=== PATIENT | female | born 1945 | race Caucasian/White ===

== ENCOUNTER 2021-04-27 18:24 | Emergency (ER) | payer OTHER, SELFPAY ==
[2021-04-27 18:30] VITALS: BP 215/81; PULSE 56; RESP 14; TEMP 36.7; O2SAT 94
--- NOTE | 2021-04-27 18:30 | RT.EKG_ITS ---
APPROVED REPORT Exam: Resting ECG Reason for Exam: dizzy Patient Location: E HR:50 bpm ECG Measurements Heart Rate 50 AXIS IN 209 P 46 QRSd 106 QRS -9 QT 506 T 30 QTc 461 Conclusion Sinus bradycardia...rate< 60. Sinus. No STEMI. I have reviewed and interpreted ECG and agree with software generated interpretation.
[2021-04-27 19:16] VITALS: RESP 20
[2021-04-27] MEDS: Normal Saline 1,000 ML 1000 ML IV (19:16)
[2021-04-27 19:20] LABS: Abs Immature Grans 0.09 10^3/uL (0.0-0.06); Absolute Basophil Count 0.06 10^3/uL (0.0-0.2); Absolute Eosinophil Count 0.25 10^3/uL (0.0-0.7); Absolute Lymphocyte Count 1.59 10^3/uL (1.2-3.4); Absolute Monocyte Count 0.66 10^3/uL (0.1-0.8); Absolute Neutrophil Count 6.21 10^3/uL (1.2-6.7); Basophils % 0.7; Eosinophils % 2.8; HCT 42.2 % (36.0-46.0); HGB 13.2 g/dL (11.2-15.7); Lymphocytes % 17.9; MCH 31.1 pg (27.0-33.0); MCHC 31.3 % (32.0-36.0); MCV 99.3 fL (80-95); MPV 10.7 fL (8.0-11.0); Monocytes % 7.4; Neutrophils % 70.2; Nucleated RBC 0 %; Platelet Count 269 10^3/uL (130-400); RBC 4.25 10^6/uL (3.93-5.22); RDW 13.2 % (11.7-14.6); RDW-SD 48.2 fL; WBC 8.86 10^3/uL (4.4-10.8)
[2021-04-27 19:32] LABS: ALT 30 U/L (14-59); AST 24 U/L (15-37); Albumin 3.8 g/dL (3.4-5.0); Alkaline Phosphatase 83 U/L (46-116); Anion Gap 7.3 mmol/L (3-11); BUN 16 mg/dL (7-18); Bilirubin, Total 0.4 mg/dL (0.2-1.0); CO2 28.7 mmol/L (21.0-32.0); CREATININE 0.9 mg/dL (0.55-1.02); Calcium 8.7 mg/dL (8.5-10.1); Chloride 107 mmol/L (98-107); Glucose 103 mg/dL (74-106); Potassium 3.6 mmol/L (3.5-5.1); Sodium 143 mmol/L (136-145); Total Protein 7.3 g/dL (6.4-8.2); Troponin I < 0.05 ng/mL (<0.06)
--- NOTE | 2021-04-27 19:45 | W.ED.GENAD ---
Discharge Plan Disposition Patient Disposition: HOME Condition: Stable Discharge Details Clinical Impression: Alcohol intoxication Primary Care Provider: Unknown,Unknown ED Provider: Chintan Staples Home Meds and New Rx's Prescriptions: Continued wkheunbgkl-hkpfhyyagdvhq-zchl 50-325-40 mg tablet RF: 0 atorvastatin 40 mg tablet 40 mg PO HS RF: 0 tizanidine 2 mg tablet 2 mg PO HS RF: 0 lisinopril 20 mg tablet 20 mg PO DAILY RF: 0 propranolol 40 mg tablet 40 mg PO BID RF: 0 hydrocodone-acetaminophen 7.5-325 mg tablet RF: 0 gabapentin 100 mg capsule 100 mg PO BID RF: 0 duloxetine 30 mg capsule,delayed release(DR/EC) 90 mg PO DAILY AM RF: 0 potassium gluconate 600 mg (99 mg) Tablet RF: 0 magnesium 200 mg Tablet 400 mg PO DAILY AM RF: 0 Discharge Instructions Instructions: Alcohol Intoxication (ED) Additional Instructions: Please drink alcohol in moderation. Watch for new or worsening symptoms and return to the ER for any concerns. As we discussed, your thyroid level, TSH is elevated and your free T4 is normal, this typically means you have hypothyroidism. I recommend following up with your primary care provider when you return home to [place] to discuss these levels as you may need to be monitored or placed on medications Discharge Data Discharge Date/Time-TO BE ENTERED AT DEPARTURE: 04/27/21 20:51 Medical Decision Making This is a 76-year-old female presenting via EMS for alcohol intoxication. She was with her and friends today, she does not typically drink alcohol, has had several alcoholic drinks. While driving home she went to a bathroom a rest stop and then was unable to out of the bathroom on her own. Because she and her could not get her out, EMS was called. Upon presentation to the ER she is asymptomatic and reports that she is acting at her baseline mental status. Denies recent illness or trauma. History of hypertension, initial blood pressure reading was 215/81, she is afebrile, O2 sats are 94% on room air. Without any intervention blood pressures began trending down quickly. Given her overall presentation this very well may be secondary to alcohol intoxication but given her age and comorbidities, would like to obtain routine laboratory values, EKG, troponin, and a head CT. Patient adamantly declines a head CT, reports that she is at baseline and reports her decision to refuse head CT. Patient receiving 1 L IV fluid Laboratory values do not reveal any obvious emergent process. TSH is 7.80. Free T4 of 0.93. Alcohol of 118. Discussed thyroid levels with patient and family, they will discuss this with their primary care provider when they return to [place]. Work-up thus far benign, again CT imaging of the head declined. Patient was observed in the ER until clinical sobriety was reached, she reports feeling asymptomatic and is requesting to be discharged. Patient's is comfortable caring for her in her current condition and supports her being discharged. Standard discharge and return precautions provided. Upon discharge blood pressure 173/80. Denies headache, visual changes, chest pain, shortness of breath, etc. This documentation was generated using yavalu dictation system, please disregard any oddities of phrase or misspellings. Lab Data Lab results reviewed: Yes I reviewed the patient's lab results. Labs: Laboratory Tests Range/Units 04/27/21 04/27/21 04/27/21 18:45 18:45 19:45 WBC (4.4-10.8) 10^3/uL 8.86 RBC (3.93-5.22) 10^6/uL 4.25 Hgb (11.2-15.7) g/dL 13.2 Hct (36.0-46.0) % 42.2 MCV (80-95) fL 99.3 H MCH (27.0-33.0) pg 31.1 MCHC (32.0-36.0) % 31.3 L RDW (11.7-14.6) % 13.2 Plt Count (130-400) 10^3/uL 269 MPV (8.0-11.0) fL 10.7 Immature Gran % 1.0 Neutrophils % 70.2 Lymphocytes % 17.9 Monocytes % 7.4 Eosinophils % 2.8 Basophils % 0.7 Nucleated RBC % % 0 Absolute Neutrophils (1.2-6.7) 10^3/uL 6.21 Absolute Lymphocytes (1.2-3.4) 10^3/uL 1.59 Absolute Monocytes (0.1-0.8) 10^3/uL 0.66 Absolute Eosinophils (0.0-0.7) 10^3/uL 0.25 Absolute Basophils (0.0-0.2) 10^3/uL 0.06 Sodium (136-145) mmol/L 143 Potassium (3.5-5.1) mmol/L 3.6 Chloride (98-107) mmol/L 107 Carbon Dioxide (21.0-32.0) mmol/L 28.7 Anion Gap (3-11) mmol/L 7.3 BUN (7-18) mg/dL 16 Creatinine (0.55-1.02) mg/dL 0.9 Estimated GFR/1.73 m2 (mL/min/1.73m2) >= 60.00 Glucose (74-106) mg/dL 103 Calcium (8.5-10.1) mg/dL 8.7 Magnesium (1.8-2.4) mg/dL 2.0 Total Bilirubin (0.2-1.0) mg/dL 0.4 AST (15-37) U/L 24 ALT (14-59) U/L 30 Alkaline Phosphatase (46-116) U/L 83 Troponin I (<0.06) ng/mL < 0.05 Total Protein (6.4-8.2) g/dL 7.3 Albumin (3.4-5.0) g/dL 3.8 TSH (0.36-3.74) uIU/mL 7.80 H Free T4 (0.76-1.46) ng/dL 0.93 Urine Color (Yellow) Yellow Urine Clarity (Clear) Clear Urine pH (5-8) 7.5 Ur Specific [place] (1.005-1.025) 1.020 Urine Protein (Negative) mg/dL Trace H Urine Ketones (Negative) mg/dL Negative Urine Blood (Negative) Trace-intact H Urine Nitrite (Negative) Negative Urine Bilirubin (Negative) Negative Urine Urobilinogen (Up TO 0.2) EU/dL 0.2 Ur Leukocyte Esterase (Negative) Negative Urine RBC (0-2) HPF 0-2 Urine WBC (0-5) HPF 0-2 Ur Epithelial Cells (Negative) HPF Few Urine Crystals (Negative) HPF Negative Urine Bacteria (Negative) HPF Negative Urine Casts (Negative) LPF Negative Urine Mucus (Negative) Negative Ur Culture Indicated? No Urine Glucose (Negative) mg/dL Negative Ethyl Alcohol (<3) mg/dL 118.0 ECG Data Attestation: I personally reviewed and interpreted this ECG (s) as follows: Interpretation: Please see official report by Dr. Askew. Sinus bradycardia, ventricular to 50, no STEMI. HPI General Mode of arrival: EMS. Date/Time Provider Initiated Documentation: 04/27/21 18:47. Limitations to Documentation: no limitations. Information obtained by: patient, family and EMS. HPI Narrative: This is a 76-year-old female, past medical history of migraines, hyperlipidemia, depression, hypertension, visiting from for that with her , presenting to the ER today via EMS for alcohol intoxication. Patient states that she was with friends today, had a couple of beers, some popsicles that were made with alcohol, and a white [place]. She states that she does not typically drink and that she feels drunk. After leaving their friends have they were driving home and they needed to warehouse puller to rest where she went into the restroom and was unable to get out of the restroom on her own. She denies recent illness or trauma. Denies any head injury, headache, visual changes, neck pain, chest pain, shortness of breath abdominal pain, nausea, vomiting, bowel or bladder incontinence, numbness, tingling, focal weakness, pain or swelling in her extremities. Because she was unable to get up out of the bathroom at the rest area with the assistance of her EMS was contacted. reports that she is at her baseline. She has no acute concerns or questions. Related Data Home Medications Medication Instructions Recorded Confirmed atorvastatin 40 mg PO HS 04/27/21 04/27/21 lpbysgzgun-eqtrnqmnbbbsx-gadb tab 04/27/21 duloxetine 90 mg PO DAILY AM 04/27/21 04/27/21 gabapentin 100 mg PO BID 04/27/21 04/27/21 hydrocodone-acetaminophen 04/27/21 lisinopril 20 mg PO DAILY 04/27/21 04/27/21 magnesium 400 mg PO DAILY AM 04/27/21 04/27/21 potassium gluconate mg 04/27/21 propranolol 40 mg PO BID 04/27/21 04/27/21 tizanidine 2 mg PO HS 04/27/21 04/27/21 Allergies Allergy/AdvReac Type Severity Reaction Status Date / Time No Known Allergies Allergy Unverified 04/27/21 18:57 General Stated Complaint: AMS/LOC HAILEY: 2 Review of Systems Constitutional Constitutional: Denies fatigue, Denies fever(s), Denies headache(s) and Reports weakness (Generalized) Eyes Eyes: Denies change in vision ENT Ears, Nose, Mouth, and Throat: Denies dizziness, Denies headache(s) and Reports disequilibrium Cardiovascular Cardiovascular: Denies chest pain and Denies dyspnea Respiratory Respiratory: Denies cough and Denies dyspnea Gastrointestinal Gastrointestinal: Denies abdominal pain, Denies nausea and Denies vomiting Genitourinary Genitourinary: Denies dysuria Musculoskeletal Musculoskeletal: Denies back pain Integumentary/Breasts Skin/Breast: Denies rash Neurologic Neurologic: Denies dizziness, Denies headache(s), Reports disequilibrium and Reports weakness (Generalized) Endocrine Endocrine: Denies fatigue Hematologic/Lymphatic Hematologic/Lymphatic: Denies easy bleeding and Denies easy bruising [facility] Social History Smoking/Tobacco Use Status: Former Tobacco Use Smoking risk assessment performed?: Yes Substance use type: does not use Do you feel safe at home: Yes Do you feel safe in your relationship?: Yes Exam Const General: cooperative, healthy appearing, comfortable and no acute distress Orientation: alert, awake and oriented x3 HENMT Head: normal to inspection, normocephalic and atraumatic Face and sinus: normal facial exam Mouth: moist mucous membranes Eyes General: appearance normal, both eyes and all related structures Alignment and Position: alignment normal Periorbital: periorbital findings normal Eyelids: eyelids normal Conjunctivae: conjunctivae normal Sclera: sclerae normal Cornea: corneas normal Pupils: PERRL EOM: EOM intact bilaterally Direct ophthalmoscopy: normal light reflex Neck Neck: normal visual inspection, full ROM, trachea midline and supple Resp Effort & Inspection: normal respiratory effort and able to speak in complete sentences Auscultation: clear to auscultation bilaterally Cardio Rate: regular rate Rhythm: regular rhythm GI Inspection: normal to inspection Palpation: soft, not firm, no guarding, no pulsatile masses and nontender Auscultation: normal bowel sounds Back/Spine/Pelvis Back: no CVA tenderness and No back tenderness Skin General skin exam: no rashes or lesions noted Neuro General: patient alert, patient awake, patient oriented x3, moves all extremities and no focal motor deficits Cranial Nerves: CN's II-XI intact bilaterally Cognition: normal cognition Speech: speech normal Gait: normal gait Motor: muscle tone normal throughout, strength 5/5 throughout, no pronator drift, no movement abnormalities noted and no fasciculations Sensory Exam: no sensory deficits noted Extrem General: normal to inspection, full ROM, capillary refill normal, no pedal edema and no calf tenderness Psych Appearance: grossly normal Mental Status: mental status grossly normal Course Vital Signs Vital signs: Vital Signs Temperature 36.7 C 04/27/21 18:30 Pulse 56 L 04/27/21 18:30 Respiratory Rate 14 04/27/21 18:30 Blood Pressure 215/81 H 04/27/21 18:30 Pulse Oximetry 94 04/27/21 18:30 Temperature 36.7 C 04/27/21 18:30 Temperature Source Tympanic 04/27/21 18:30 Pulse 56 L 04/27/21 18:30 Respiratory Rate 20 04/27/21 19:16 Respiratory Effort 04/27/21 19:16 Blood Pressure 215/81 H 04/27/21 18:30 Blood Pressure Position Supine 04/27/21 18:30 Pulse Oximetry 94 04/27/21 18:30 Oxygen Delivery Method Room Air 04/27/21 18:30 Oxygen Flow Rate 0 04/27/21 18:30 Pain Level 0 04/27/21 18:30 Lab/Test Results Lab/Test Results: Laboratory Tests Range/Units 04/27/21 04/27/21 18:45 18:45 WBC (4.4-10.8) 10^3/uL 8.86 RBC (3.93-5.22) 10^6/uL 4.25 Hgb (11.2-15.7) g/dL 13.2 Hct (36.0-46.0) % 42.2 MCV (80-95) fL 99.3 H MCH (27.0-33.0) pg 31.1 MCHC (32.0-36.0) % 31.3 L RDW (11.7-14.6) % 13.2 Plt Count (130-400) 10^3/uL 269 MPV (8.0-11.0) fL 10.7 Immature Gran % 1.0 Neutrophils % 70.2 Lymphocytes % 17.9 Monocytes % 7.4 Eosinophils % 2.8 Basophils % 0.7 Nucleated RBC % % 0 Absolute Neutrophils (1.2-6.7) 10^3/uL 6.21 Absolute Lymphocytes (1.2-3.4) 10^3/uL 1.59 Absolute Monocytes (0.1-0.8) 10^3/uL 0.66 Absolute Eosinophils (0.0-0.7) 10^3/uL 0.25 Absolute Basophils (0.0-0.2) 10^3/uL 0.06 Sodium (136-145) mmol/L 143 Potassium (3.5-5.1) mmol/L 3.6 Chloride (98-107) mmol/L 107 Carbon Dioxide (21.0-32.0) mmol/L 28.7 Anion Gap (3-11) mmol/L 7.3 BUN (7-18) mg/dL 16 Creatinine (0.55-1.02) mg/dL 0.9 Estimated GFR/1.73 m2 (mL/min/1.73m2) >= 60.00 Glucose (74-106) mg/dL 103 Calcium (8.5-10.1) mg/dL 8.7 Magnesium (1.8-2.4) mg/dL 2.0 Total Bilirubin (0.2-1.0) mg/dL 0.4 AST (15-37) U/L 24 ALT (14-59) U/L 30 Alkaline Phosphatase (46-116) U/L 83 Troponin I (<0.06) ng/mL < 0.05 Total Protein (6.4-8.2) g/dL 7.3 Albumin (3.4-5.0) g/dL 3.8 TSH (0.36-3.74) uIU/mL 7.80 H Ethyl Alcohol (<3) mg/dL 118.0
[2021-04-27 19:48] LABS: FREE T4 0.93 ng/dL (0.76-1.46)
[2021-04-27 19:50] LABS: Bilirubin Negative (Negative); Blood Trace-intact (Negative); Clarity Clear (Clear); Glucose Negative (Negative); Ketones Negative (Negative); Leukocyte Esterase Negative (Negative); Nitrite Negative (Negative); Urobilinogen 0.2 EU/dL (Up TO 0.2); pH 7.5 (5-8)
[2021-04-27 19:57] LABS: Bacteria Negative HPF (Negative); C & S Indicated? No; Casts Negative LPF (Negative); Crystals Negative HPF (Negative); Epithelial Cells Few HPF (Negative); Mucus Negative (Negative); RBC 0-2 HPF (0-2); WBC 0-2 HPF (0-5)
[2021-04-27 20:11] VITALS: BP 173/80; PULSE 65; O2SAT 97
== END 2021-04-27 20:51 | disposition home or self-care (01) ==
PROVIDERS: Emergency Provider Physician Assistant
DX: F10.120 Alcohol abuse with intoxication, uncomplicated (principal); Y90.5 Blood alcohol level of 100-119 mg/100 ml; I10 Essential (primary) hypertension; R00.1 Bradycardia, unspecified
CPT/HCPCS: 36415; 80053; 93005; 96360; 99285; 80320; 81003; 81015; 83735; 84439; 84443; 84484; 85025; 93010; 99284

== ENCOUNTER 2023-05-04 18:04 | Emergency (ER) | payer OTHER, SELFPAY ==
[2023-05-04] VITALS (53 sets, daily range): BP systolic 100–197; BP diastolic 43–133; PULSE 65–98; RESP 9–35; TEMP 36–36.6; O2SAT 81–100
--- NOTE | 2023-05-04 18:05 | W.ED.GENAD ---
Discharge Plan Disposition Patient Disposition: Transfer-Acute Inpatient Care Specific Acute Inpt Facility: [facility] Discharge Details Clinical Impression: Acute lower gastrointestinal hemorrhage, Pericardial effusion, Lesion of liver, Cystic mass of pancreas Primary Care Provider: Unknown,Unknown ED Provider: Isaiah Lewis Roosevelt Meds and New Rx's Prescriptions: No Action dkcokqzfro-gnnupkogwwytp-jbol 50-325-40 mg tablet atorvastatin 40 mg tablet 40 mg PO HS tizanidine 2 mg tablet 2 mg PO HS lisinopril 20 mg tablet 20 mg PO DAILY propranolol 40 mg tablet 40 mg PO BID hydrocodone-acetaminophen 7.5-325 mg tablet 1 tab PO DAILY Patient Comments: TAKE 1 TABLET BY MOUTH EVERY 6 HOURS NEEDED Rx Instructions: 04/27/21 has for back pain but never uses gabapentin 100 mg capsule 100 mg PO BID duloxetine 30 mg capsule,delayed release(DR/EC) 90 mg PO DAILY AM potassium gluconate 600 mg (99 mg) Tablet magnesium 200 mg Tablet 400 mg PO DAILY AM omeprazole 40 mg capsule,delayed release(DR/EC) carvedilol 3.125 mg tablet 3.125 mg PO DAILY citalopram 20 mg tablet 20 mg PO DAILY Patient Comments: TAKE 1 TABLET BY MOUTH ONCE DAILY HPI General Date/Time Provider Initiated Documentation: 05/04/23 18:05. HPI Narrative: HPI This is a 78-year-old female who has finished outpatient treatment for sinusitis with steroids previously on an extended prednisone taper which she completed last week after completing amoxicillin clavulanic acid erythromycin and cefdinir that began after the bleeding now with bright red blood per rectum. Patient reports that she was at a friend's house and that she began bleeding approximately 2 hours ago. She also endorses cramping suprapubic discomfort she does not take an aspirin every day.. She is not anticoagulated. Patient did have a colonoscopy last year which she reported was normal. She was given a return indications of 10 years. She does drink a beer every day but denies history of withdrawal. She has had some nausea but no hematemesis. No history of recent falls. She was in her usual state of health earlier today and denies fevers chills chest pain shortness of breath dysuria and frequency. Exam General: Uncomfortable-appearing in no acute distress speaking in complete sentences. Head: Normocephalic, atraumatic. Eye: Extraocular eye movements intact. No conjunctival injection. No scleral icterus. Ear, nose, mouth, throat: Grossly normal inspection. Normal voice, handling secretions normally. Neck: Trachea midline. Cardiovascular: Well-perfused distal extremities. Regular rate and rhythm. Respiratory: Nonlabored respiration. Clear lungs bilaterally. Gastrointestinal: Nondistended abdomen. Soft with suprapubic discomfort. No rebound. No guarding. Rectal: No active bright red blood per rectum. No obvious melena. No obvious external nor internal hemorrhoids. Regular rate and rhythm. Musculoskeletal: No edema. Moving all 4 extremities spontaneously. Skin: Normal for age and race, grossly normal temperature and turgor. No acute rash. Neurologic: Alert and appropriate, no apparent acute deficits. Psychiatric: Mood and manner are appropriate. Grooming and personal hygiene are appropriate. MDM This is an uncomfortable appearing afebrile and not tachycardic but hypertensive 78-year-old female with active bright red blood per rectum for which she will receive pantoprazole and CT abdomen pelvis to assess for blush given suprapubic discomfort. If patient has active blush she may be an interventional radiology candidate so I anticipate touching base with [facility] following CT based on results. Bleeding could certainly be from diverticula versus upper GI bleed secondary to recent prednisone. No obvious bleeding external nor internal hemorrhoids. Alternatively she could have a bleeding AVM based on her age. She is not an alcoholic so we will defer octreotide as she has had no hematemesis and my suspicion for variceal bleed is exceedingly low. We will defer ceftriaxone as patient is not an alcoholic so my suspicion is low for spontaneous bacterial peritonitis. Will obtain two points of IV access provide 500 cc of crystalloid while awaiting CBC. I sent a type and screen. Will treat with 80 mg of pantoprazole. Given normal colonoscopy last year my suspicion for malignancy is low. Patient is not anticoagulated so no indication for reversal. 6:51 PM Initial CBC lacks anemia thrombocytopenia and leukocytosis. We will repeat H&H at 9:30 PM. 7:06 PM Mildly elevated ethanol level consistent with patient's history of having a beer this evening. No KRISH. Mild hyperglycemia. No anion gap and normal bicarbonate??not consistent with DKA. Normal LFTs. Normal lipase. No hypomagnesemia. Patient's Glascow Blatchford bleeding score is 0 but given her active bleeding she is certainly high risk. We will continue to monitor in the ED. Patient is just going down for CAT scan. Patient has 2 points of IV access. An 18-gauge in the left AC and a 20-gauge in her right AC. 8:[address] scan showing concern for active blush in the descending colon. I spoke with Dr. Glass from general surgery who reviewed the patient's images. He felt that it would be ideal for the patient to go to a facility with interventional radiology this evening for possibility of coiling. He said that if the patient could not be transferred that he could complete a bowel prep this evening and have the patient go for colonoscopy tomorrow. Patient also had a cystic structure in the neck for pancreas and a liver mass. She was noted to have a small pericardial effusion. I did not feel that she required an echocardiogram as she was not hypotensive and so my suspicion was low for tamponade. She is not complaining of chest pain either. I will update the patient on these incidental findings. 8:10 PM Patient had another large bright red bowel movement. I spoke to [facility] and they will present the case to GI who will call me back. Unfortunately [facility] is at capacity. 8:34 PM Patient had 430 cc approximately of bright red blood per rectum over 5 minutes. We will initiate transfusion with 2 units. Patient has not had any tachycardia. Her blood pressure is 114/63. We will consent for transfusion. Patient was diaphoretic and lightheaded when I saw her. She also now appears pale. I spoke with Dr. Anant ALTMAN at [facility]. She agreed and felt that the patient would be well served at a tertiary care center with IR capabilities. I am awaiting to hear back from the hospitalist service at [facility]. 8:45 PM I obtained consent for blood from the patient's as she was symptomatic from her GI bleed with lightheadedness. 8:54 PM Repeat blood pressure 104/53. We are calling the lab to obtain the blood. 8:56 PM Repeat hemoglobin 9.2 down more than 3 points in the last 2 hours. 9:40 PM I spoke with Dr. Parkinson from [facility] in the MICU and she has accepted the patient. I ordered an INR. We will wait for bed placement to call. 10:30 PM INR 0.9. Patient has a bed at [facility]. We are waiting to hear from helicopter. 10:50 PM [employer] helicopter from [facility] is due at 11:15 PM. Patient has not yet been hypotensive nor tachycardic. Current heart rate is 72. Her blood pressure is 173/74. She is receiving 2 units. Chronic conditions affecting the care of the patient: N/A History obtained from an outside historian: Patient's External record review: No [facility] EMR records Medications: Octreotide Social determinants of health affecting disposition: N/A Management discussed with: General surgery, gastroenterology at [facility], hospitalist service at [facility] Treatment/interventions considered: Local hospitalization but deferred given potential interventional candidate Response to therapies provided: Improved blood pressure status post transfusion Related Data Home Medications Medication Instructions Recorded Confirmed atorvastatin 40 mg tablet 40 mg PO HS 04/27/21 05/04/23 iyddrmdzwn-eneznffczdyre-dcoaenvl tab 04/27/21 50 mg-325 mg-40 mg tablet duloxetine 30 mg capsule,delayed 90 mg PO DAILY AM 04/27/21 04/27/21 release gabapentin 100 mg capsule 100 mg PO BID 04/27/21 04/27/21 hydrocodone 7.5 mg-acetaminophen 1 tab PO DAILY 04/27/21 05/04/23 325 mg tablet lisinopril 20 mg tablet 20 mg PO DAILY 04/27/21 04/27/21 magnesium 200 mg tablet 400 mg PO DAILY AM 04/27/21 04/27/21 potassium gluconate 600 mg (99 mg) mg 04/27/21 tablet propranolol 40 mg tablet 40 mg PO BID 04/27/21 04/27/21 tizanidine 2 mg tablet 2 mg PO HS 04/27/21 05/04/23 carvedilol 3.125 mg tablet 3.125 mg PO DAILY 05/04/23 05/04/23 citalopram 20 mg tablet 20 mg PO DAILY 05/04/23 05/04/23 omeprazole 40 mg capsule,delayed mg 05/04/23 05/04/23 release Allergies Allergy/AdvReac Type Severity Reaction Status Date / Time No Known Allergies Allergy Unverified 05/04/23 18:11 General HAILEY: 2 PFSH All Active Problems (Updated 05/04/23 @ 20:01 by Isaiah Lewis MD) Alcohol intoxication (Acute) Acute lower gastrointestinal hemorrhage (Acute) Pericardial effusion (Acute) Lesion of liver (Acute) Cystic mass of pancreas (Acute) Social History Smoking/Tobacco Use Status: Former Tobacco Use Quit Date: 08/03/78 Smoking risk assessment performed?: Yes Alcohol Intake: current Alcohol Intake frequency: a few times a month Alcohol type: beer Drug use: Never Substance use type: does not use Housing: house Do you feel safe at home: Yes Do you feel safe in your relationship?: Yes Critical Care Time Critical Care Time Critical Care Time: Yes Total Critical Care Time: 45 Attestation: Acute GI bleed
--- NOTE | 2023-05-04 18:30 | DI.CT_ITS ---
Exam(s) CT ABDOMEN PELVIS W EXAM: CT ABDOMEN PELVIS W CLINICAL HISTORY: Suprapubic pain GI bleed. TECHNIQUE: Imaging Protocol: Axial computed tomography images with coronal and sagittal reformatted images were created and reviewed CONTRAST MATERIAL: Intravenous: Omnipaque 350 Contrast volume:100 ml Oral: no COMPARISON: No exams were available for comparison FINDINGS: ABDOMEN: Lung Bases: Trace pericardial effusion. Liver: Normal density. Small area low-density anterior liver consistent with a hemangioma. Compariso n with prior is recommended. Gallbladder and biliary tract: No radiodense calculus or dilation. Pancreas: Normal density, no abnormal calcifications or inflammatory process. There 10 millimeter c yst. Comparison with priors recommended. Spleen: Normal. Kidneys: Status post left nephrectomy. No radiodense stones or obstructive uropathy. No suspicious m asses seen. Adrenal glands: No masses seen. Vasculature: Abdominal aorta non-dilated. Atherosclerotic changes. Soft tissues: Bilateral breast implants partially visualized. PELVIS: Bladder: No gross wall thickening. No calculi.No focal mass. Bowel: Suture material at fundus of stomach. Diverticulosis. No evidence of diverticulitis. Descen ding and rectosigmoid colons show fluid and fecal material. High-density material noted in the mid d escending colon may represent previously administered contrast material or other high-density ingeste d material. Active contrast extravasation indicating active GI bleed is also be considered. No obst ruction. No bowel wall thickening. Appendix normal. Small bowel unremarkable. Peritoneal cavity: No ascites, collection or mesenteric inflammatory response. Bones: Degenerative changes in the spine. Small sclerotic lesions in L3 and L4 likely represent bone islands. Reproductive organs: Within normal limits. Lymph nodes: Unremarkable. IMPRESSION:: Fluid-filled descending erect ago sigmoid colon. high density material which could re present active extravasation of contrast indicating active GI bleed versus ingested material. Small low-density lesion with peripheral enhancement in the anterior liver likely represents a avis ioma. Chronic comparison with priors recommended. 10 millimeter pancreatic cyst. Comparison with priors recommended. RADIATION DOSE DELIVERED: 749.76mGy.cm Total DLP DATA REPOSITORY: All CT scans at this facility are submitted to the National Radiology Data Registry (NRDR) Dose Index Registry (DIR) with the [employer] ([employer]). RADIATION OPTIMIZATION: All CT scans at this facility use at least one of these dose optimization te chniques: automated exposure control; mA and/or kV adjustment per patient size (includes targeted exa ms where dose is matched to clinical indication); or iterative reconstruction.
[2023-05-04 18:48] LABS: Abs Immature Grans 0.03 10^3/uL (0.0-0.06); Absolute Basophil Count 0.05 10^3/uL (0.0-0.2); Absolute Eosinophil Count 0.12 10^3/uL (0.0-0.7); Absolute Lymphocyte Count 1.98 10^3/uL (1.2-3.4); Absolute Monocyte Count 0.53 10^3/uL (0.1-0.8); Basophils % 0.6; Eosinophils % 1.4; HCT 39.3 % (36.0-46.0); HGB 12.9 g/dL (11.2-15.7); Immature Grans % 0.3; Lymphocytes % 22.7; MCH 31.6 pg (27.0-33.0); MCHC 32.8 % (32.0-36.0); MCV 96 fL (80-95); MPV 10.2 fL (8.0-11.0); Monocytes % 6.1; Neutrophils % 68.9; Platelet Count 259 10^3/uL (130-400); RBC 4.08 10^6/uL (3.93-5.22); RDW 13.9 % (11.7-14.6); RDW-SD 49.3 fL; WBC 8.71 10^3/uL (4.4-10.8)
[2023-05-04] MEDS: Normal Saline 500 ML IV (18:49)
[2023-05-04] MEDS: Pantoprazole 40 MG VIAL 80 MG IVP (18:50)
[2023-05-04 19:01] LABS: ETHANOL BLOOD 3.1 mg/dL (<10)
[2023-05-04 19:03] LABS: ALT 22 U/L (14-59); AST 14 U/L (15-37); Albumin 3.6 g/dL (3.4-5.0); Alkaline Phosphatase 75 U/L (46-116); Anion Gap 9.2 mmol/L (3-11); BUN 17 mg/dL (7-18); Bilirubin, Total 0.3 mg/dL (0.2-1.0); CO2 24.8 mmol/L (21.0-32.0); CREATININE 0.8 mg/dL (0.55-1.02); Calcium 9.1 mg/dL (8.5-10.1); Chloride 106 mmol/L (98-107); Estimated GFR 76.31 (mL/min/1.73m2); Glucose 124 mg/dL (74-106); Lipase 65 U/L (16-77); Potassium 3.7 mmol/L (3.5-5.1); Sodium 140 mmol/L (136-145); Total Protein 6.8 g/dL (6.4-8.2)
[2023-05-04] MEDS: fentaNYL 100 MCG/2 ML VIAL 50 MCG IVP (19:03)
[2023-05-04] MEDS: Normal Saline - Diluent 50 ML VIAL IJ (19:04)
[2023-05-04] MEDS: Ondansetron 4 MG/2 ML VIAL IVP (19:04)
[2023-05-04] MEDS: Omnipaque 350 MG/ML 100 ML BTL IJ (19:04)
[2023-05-04] MEDS: Normal Saline Flush 10 ML SYR IVP (19:20)
--- NOTE | 2023-05-04 19:45 | DI.VRAD_ITS ---
Addendum created by Alma Burton MD on 05/04/2023 7:48:28 PM EDT: THIS REPORT CONTAINS FINDINGS THAT MAY BE CRITICAL TO PATIENT CARE. The findings were verbally communicated via telephone conference with ALISA JIMÉNEZ at 7:48 PM EDT on 05/04/2023. The findings were acknowledged and understood. Initial report created on 05/04/2023 7:45:05 PM EDT: PROCEDURE INFORMATION: Exam: CT Abdomen And Pelvis With Contrast Exam date and time: 05/04/2023 7:07 PM Age: 78 years old Clinical indication: Abdominal pain; Localized; Other: Suprapubic; Prior surgery; Surgery date: 6+ months; Surgery type: X of kidney CA /removal. Breast augmentation; Patient HX: Pain, rectal bleed TECHNIQUE: Imaging protocol: Computed tomography of the abdomen and pelvis with contrast. Radiation optimization: All CT scans at this facility use at least one of these dose optimization techniques: automated exposure control; mA and/or kV adjustment per patient size (includes targeted exams where dose is matched to clinical indication); or iterative reconstruction. Contrast material: OMNIPAQUE 350; Contrast volume: 85 ml; Contrast route: INTRAVENOUS (IV); COMPARISON: No relevant prior studies available. FINDINGS: Heart: Small pericardial effusion Liver: 14 mm complex lesion with hyperdensities and low-attenuation in the right lobe of the liver series 4, image 17. May represent hemangioma or neoplasm. Gallbladder and bile ducts: Normal. No calcified stones. No ductal dilation. Pancreas: 11 mm cystic structure in the neck of the pancreas. 7-8 Hounsfield units.. Spleen: Normal. No splenomegaly. Adrenal glands: Normal. No mass. 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 Coronal series 6 image 43 -33. This may represent active extravasation in the descending colon. The rectum is distended to 5 cm with fecal material and fluid. Diverticulosis of the rectosigmoid.. No cesar diverticulitis Appendix: Normal appendix . Intraperitoneal space: Unremarkable. No free air. No significant fluid collection. Vasculature: Unremarkable. No abdominal aortic aneurysm. Lymph nodes: Unremarkable. No enlarged lymph nodes. Urinary bladder: Unremarkable as visualized. Reproductive: Unremarkable as visualized. Bones/joints: Stable sclerotic density in L4 No acute fracture. Soft tissues: Unremarkable. IMPRESSION: 1. 11 mm cystic structure in the neck of the pancreas. 7-8 Hounsfield units.. Differential includes pancreatic cyst, pancreatic pseudocyst, pancreatic cystic neoplasm. Recommend further evaluation if clinically indicated 2. Curvilinear hyperdensity in the descending colon. Coronal series 6 image [id number] -33. This may represent active extravasation in the descending colon. 3. Normal appendix . Dictated and Authenticated by: Alma Burton MD. Ordering:ALICE Colon MD
[2023-05-04 20:52] LABS: HCT 27.9 % (36.0-46.0); HGB 9.2 g/dL (11.2-15.7)
[2023-05-04 21:54] LABS: INR 0.9 (0.9-1.1); Prothrombin Time 9.2 sec (9.3-11.0)
[2023-05-04] MEDS: MORPHine 4 MG/ML SYR 2 MG IVP (21:56)
[2023-05-04 23:19] LABS: HCT 32.9 % (36.0-46.0); HGB 10.8 g/dL (11.2-15.7)
[2023-05-05 00:41] VITALS: BP 145/74; PULSE 68; RESP 18; TEMP 36.7; O2SAT 100
== END 2023-05-05 06:44 | disposition short-term general hospital (02) ==
PROVIDERS: Emergency Provider Emergency Medicine
DX: K92.2 Gastrointestinal hemorrhage, unspecified (principal); I31.39 Other pericardial effusion (noninflammatory); K76.9 Liver disease, unspecified; K86.2 Cyst of pancreas; R10.30 Lower abdominal pain, unspecified
CPT/HCPCS: 36415; 80053; 83690; 86850; 86900; 86901; 86920; 96374; 96375; 99285; 74177; 80320; 83735; 85014; 85018; 85025; 85610; J2270; J2405; J3010; J3490; P9016